=== PATIENT | female | born 1990 | race Caucasian/White ===

== ENCOUNTER 2025-06-28 11:32 | Emergency (ER) | payer SELFPAY ==
[~2025-06-28] VITALS: Ht 167.6 cm; Wt 60.0 kg
[2025-06-28 11:34] VITALS: O2SAT 100
[2025-06-28 11:42] VITALS: TEMP 36.6; O2SAT 99
[2025-06-28 12:51] LABS: BASOPHILS % 0.7 % (0.0-2.0); EOSINOPHILS % 3.0 % (0.0-5.0); HEMATOCRIT. 40.2 % (36.0-48.0); HEMOGLOBIN. 13.9 g/dL (12.0-16.0); LYMPHOCYTES % 35.4 % (20.0-50.0); MEAN PLATELET VOLUME 8.6 fl (7.4-10.4); MONOCYTES % 5.7 % (2.0-8.0); NEUTROPHILS % 55.2 % (40.0-76.0); PLATELET 310 x1000/uL (130-400); RED BLOOD CELL COUNT 4.59 mill/uL (4.2-5.4); RED CELL DISTRIBUTION WIDTH 13.5 % (11.6-14.6)
[2025-06-28 13:00] LABS: CREATININE 0.8 mg/dL (0.6-1.0); UREA NITROGEN BLOOD 7 mg/dL (9-23)
[2025-06-28] MEDS: LACTATED RINGERS 1,000 ML IV SCH (13:18)
[2025-06-28 13:38] LABS: PROTEIN TOTAL 6.7 g/dL (6.0-8.3)
[2025-06-28 13:39] LABS: ASPARTATE AMINOTRANSFERASE 20 IU/L (<34); BILIRUBIN DIRECT < 0.1 mg/dL (<=3.0); BILIRUBIN TOTAL 0.3 mg/dL (0.1-1.0)
[2025-06-28] MEDS: ACETAMINOPHEN 1000MG/100ML 100 ML IV ONE (14:16)
[2025-06-28] MEDS: METOCLOPRAMIDE HCL 10MG/2ML VIAL IV ONE (14:16)
[2025-06-28 14:35] LABS: CLARITY URINE CLEAR (CLEAR); COLOR URINE YELLOW (YELLOW); GLUCOSE URINE NEGATIVE (NEGATIVE); KETONES URINE NEGATIVE (NEGATIVE); LEUKOCYTE ESTERASE URINE TRACE (NEGATIVE); NITRITE URINE NEGATIVE (NEGATIVE); OCCULT BLOOD URINE TRACE (NEGATIVE); PH URINE 6.5 (4.5-8.0); PROTEIN URINE NEGATIVE (NEGATIVE); SPECIFIC GRAVITY URINE 1.009 (1.005-1.030); UROBILINOGEN URINE 0.2 E.U./dL (0.2-1.0)
[2025-06-28 14:41] LABS: HCG SCREEN NEGATIVE
[2025-06-28 14:56] LABS: SQUAMOUS EPITHELIAL CELL URINE 2+ /lpf (RARE/1+)
[2025-06-28 14:58] LABS: BACTERIA URINE TRACE
[2025-06-28 15:20] VITALS: BP 127/90; PULSE 63; RESP 18
[2025-06-28] MEDS: KETOROLAC 15MG/ML VIAL IV ONE (15:20)
[2025-06-28] MEDS ORDERED: CEFP100T8 MT (16:07)
== END 2025-06-28 16:30 | disposition home or self-care (01) ==
LOC: ER 11:32
DX: R51.9 Headache, unspecified (principal); N39.0 Urinary tract infection, site not specified; Z98.51 Tubal ligation status
CPT/HCPCS: 99285; 70450; 96365; 76830; 76856; 96375; 87491; 87591; 80076; 80048; 81003; 81025; 84703; 83690; 85025; 36415; 74176; J1885; J2765; J0131